=== PATIENT | male | born 1995 | race Caucasian/White ===

== ENCOUNTER 2018-06-20 15:09 | Emergency (ER) | payer MEDICAID, OTHER ==
[~2018-06-20] VITALS: Ht 167.6 cm; Wt 69.9 kg
[2018-06-20 15:13] VITALS: Ht 167.6 cm; Wt 69.9 kg
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
[2018-06-20] MEDS ORDERED: IBUPROFEN 200 MG TAB PO ONE (17:30)
[2018-06-20] MEDS ORDERED: ACETAMINOPHEN 325 MG TAB PO ONE (17:30)
[2018-06-20] MEDS ORDERED: ACET325T33 PO (18:10)
[2018-06-20] MEDS ORDERED: IBUP-1542 PO (18:10)
[2018-06-20 18:35] VITALS: BP 135/70; PULSE 63; RESP 16
== END 2018-06-20 18:36 | disposition home or self-care (01) ==
LOC: FTE 15:09
DX: S62.316A Displaced fracture of base of fifth metacarpal bone, right hand, initial encounter for closed fracture (principal); W22.01XA Walked into wall, initial encounter; Y92.9 Unspecified place or not applicable
CPT/HCPCS: 29125; 73110; 73130; Z7502; Z7610